=== PATIENT | female | born 1995 | race African-American/Black ===

== ENCOUNTER 2021-09-07 12:24 | Emergency (ER) | payer SELFPAY ==
[~2021-09-07] VITALS: Ht 170.2 cm; Wt 70.0 kg
[~2021-09-07 12:24] MED LIST: no homemeds
[2021-09-07 14:02] LABS: HEMATOCRIT 38.7 % (37.0-47.0); HEMOGLOBIN 12.3 g/dl (12.0-16.0); IMMATURE GRANULOCYTES 0.2 % (0.0-5.0); MEAN CELL VOLUME 92.4 fL CALC (80.0-100.0); MEAN CORPUSCULAR HGB 29.4 pG CALC (26.0-32.0); MEAN CORPUSCULAR HGB CONC 31.8 g/dL CAL (32.0-36.0); NEUT# 4.78 thou/uL (2.00-7.15); RED BLOOD COUNT 4.19 mill/uL (4.20-5.60); RED CELL DISTRI WIDTH 13.7 % (11.5-15.5)
[2021-09-07 14:33] LABS: ALKALINE PHOSPHATASE 88 u/l (38-126); ANION GAP 10 (6-22 (CALC)); BUN 11 mg/dL (7-17); BUN/CREATININE RATIO 17 (12-20 (CALC)); CARBON DIOXIDE 32 mmol/l (22-30); CHLORIDE 99 mmol/l (95-108); CREATININE 0.6 mg/dL (0.5-1.0); ETHYL ALCOHOL 0 mg/dl (0-30); GFR > 60 ML/MIN (>=60 (CALC)); GFR FOR AFR.AMER. > 60 ML/MIN (>=60 (CALC)); POTASSIUM 3.3 mmol/l (3.5-5.1); SGOT/AST 72 u/l (14-36); SODIUM 137 mmol/l (137-146); TOTAL PROTEIN 7.5 g/dL (6.3-8.2)
[2021-09-07 14:56] LABS: PHENYTOIN (DILANTIN) < 3 ug/mL (10 - 20)
[2021-09-07 15:23] LABS: CPK 108 u/l (30-165)
[2021-09-07 17:20] VITALS: BP 113/69
== END 2021-09-07 17:20 | disposition home or self-care (01) | DRG 897 ==
LOC: ED 12:24
PROVIDERS: Family Medicine
DX: F11.90 Opioid use, unspecified, uncomplicated (principal)